=== PATIENT | female | born 1975 | race Caucasian/White ===

== ENCOUNTER 2024-03-12 14:02 | Outpatient (CLI) | payer BC, OTHER | END 2024-03-12 14:03 | disposition home or self-care (01) | LOC: CSHMRI 14:02 | PROVIDERS: ATTEND Psychiatry & Neurology Neurology | DX: R93.89 Abnormal findings on diagnostic imaging of other specified body structures (principal); R93.0 Abnormal findings on diagnostic imaging of skull and head, not elsewhere classified | CPT/HCPCS: 70544 ==

== ENCOUNTER 2024-04-19 13:07 | Emergency (ER) | payer BC, OTHER ==
[~2024-04-19 13:07] MED LIST: Iopamidol 300 61% 100 ML VIAL FS ONE
[2024-04-19] MEDS ORDERED: diphenhydrAMINE 50 MG/ML VIAL ONE (13:56)
[2024-04-19] MEDS ORDERED: Metoclopramide HCl 10 MG (2 mL) VIAL ONE (13:56)
[2024-04-19 14:34] LABS: #Basophils 0.03 10x3/uL (0.0-0.2); #Eosinophils 0.21 10x3/uL (0.0-0.5); #Monocytes 1.12 10x3/uL (0.0-1.1); #Neutrophils 7.27 10x3/uL (1.5-8.4); %Basophils 0.3 % (0.0-2.0); %Eosinophils 2.2 % (0.0-6.0); %Lymphocytes 9.8 % (18.0-47.0); %Monocytes 11.6 % (0.0-10.0); %Neutrophils 75.4 % (40.0-75.0); Hematocrit 38.8 % (34.9-44.5); Hemoglobin 13.2 g/dL (12.0-15.5); Mean Corpuscular Hemoglobin 30.3 pg (27.0-33.0); Mean Platelet Volume 10.6 fL (7.4-10.4); Platelet Count 207 10x3/uL (150-450); RBC Distribution Width 12.6 % (11.5-14.5); Red Blood Cell (RBC) Count 4.36 10x6/uL (3.90-5.03); White Blood Cell (WBC) Count 9.7 10x3/uL (3.5-10.5)
[2024-04-19] MEDS ORDERED: Magnesium 2 GM/50 ML BAG (IN WATER) ONE (15:04)
[2024-04-19] MEDS ORDERED: Acetaminophen 500 MG TAB ONE (15:04)
[2024-04-19 15:38] LABS: PTT 32.8 sec (22.0-33.0); Prothrombin Time 10.9 sec (9.5-12.1)
[2024-04-19 15:40] LABS: ALT (SGPT) 27 U/L (8-55); AST (SGOT) 25 U/L (5-34); Albumin 3.5 g/dL (3.5-5.0); Alkaline Phosphatase 102 U/L (40-110); Anion Gap 16 mmol/L (10-20); BUN (Urea Nitrogen) 7 mg/dL (7.0-18.7); Bilirubin, Total 0.5 mg/dL (0.2-1.2); Calc. Creatinine Clearance 0 mL/min (70-130); Calcium 9.8 mg/dL (7.8-10.44); Carbon Dioxide 26 mmol/L (22-29); Chloride 102 mmol/L (98-107); Estimated GFR 90; Globulin 3.6 g/dL (2.4-3.5); Glucose 132 mg/dL (70-105); Potassium 4.5 mmol/L (3.5-5.1); Protein, Total 7.1 g/dL (6.0-8.3); Sodium 139 mmol/L (136-145)
== END 2024-04-19 15:58 | disposition home or self-care (01) ==
LOC: CSHERS 13:07
DX: R51.9 Headache, unspecified (principal); H53.143 Visual discomfort, bilateral; I10 Essential (primary) hypertension
CPT/HCPCS: 36415; 70450; 70496; 80053; 85025; 85610; 85730; 93005; 96365; 96366; 96368; 96375; J1200; J2765; J3475; Q9967

== ENCOUNTER 2024-04-20 16:34 | Inpatient (IN) | payer BC, OTHER ==
[2024-04-20] MEDS ORDERED: Bupivacaine PF 0.5% 30 ML VIAL ONE (17:43)
[2024-04-20] MEDS ORDERED: Diazepam 10 MG/2 ML SYRINGE ONE (17:51)
[2024-04-20] MEDS ORDERED: diphenhydrAMINE 50 MG/ML VIAL ONE (17:52)
[2024-04-20] MEDS ORDERED: Metoclopramide HCl 10 MG (2 mL) VIAL ONE (17:52)
[2024-04-20 18:21] LABS: #Basophils 0.06 10x3/uL (0.0-0.2); #Eosinophils 0.27 10x3/uL (0.0-0.5); #Monocytes 1.03 10x3/uL (0.0-1.1); #Neutrophils 7.79 10x3/uL (1.5-8.4); %Basophils 0.6 % (0.0-2.0); %Eosinophils 2.6 % (0.0-6.0); %Lymphocytes 12.4 % (18.0-47.0); %Monocytes 9.7 % (0.0-10.0); %Neutrophils 73.6 % (40.0-75.0); Hematocrit 40.5 % (34.9-44.5); Hemoglobin 13.5 g/dL (12.0-15.5); Mean Corpuscular HGB CONC 33.3 g/dL (32.0-36.0); Mean Corpuscular Hemoglobin 29.7 pg (27.0-33.0); Mean Platelet Volume 9.7 fL (7.4-10.4); Platelet Count 276 10x3/uL (150-450); RBC Distribution Width 12.8 % (11.5-14.5); Red Blood Cell (RBC) Count 4.55 10x6/uL (3.90-5.03); White Blood Cell (WBC) Count 10.6 10x3/uL (3.5-10.5)
[2024-04-20 18:32] LABS: ALT (SGPT) 31 U/L (8-55); AST (SGOT) 28 U/L (5-34); Albumin 3.3 g/dL (3.5-5.0); Alkaline Phosphatase 92 U/L (40-110); Anion Gap 14 mmol/L (10-20); BUN (Urea Nitrogen) 9 mg/dL (7.0-18.7); Bilirubin, Total 0.3 mg/dL (0.2-1.2); Calc. Creatinine Clearance 0 mL/min (70-130); Calcium 9.7 mg/dL (7.8-10.44); Carbon Dioxide 25 mmol/L (22-29); Chloride 105 mmol/L (98-107); Estimated GFR 85; Globulin 3.4 g/dL (2.4-3.5); Glucose 126 mg/dL (70-105); Potassium 4.2 mmol/L (3.5-5.1); Protein, Total 6.7 g/dL (6.0-8.3); Sodium 140 mmol/L (136-145)
[2024-04-20] MEDS ORDERED: cefTRIAXone (ROCEPHIN) 2 GM VIAL ONE (18:46)
[2024-04-20] MEDS ORDERED: Acetaminophen 500 MG TAB ONE (20:45)
[2024-04-20] MEDS ORDERED: Acetaminophen 650 MG Suppository PR PRN (21:32)
[2024-04-20] MEDS: cefTRIAXone\\ROCEPHIN 2 GM in Sodium Chloride 0.9% 100 ML IVPB SCH (23:55)
[2024-04-20] MEDS: Dexamethasone 20 MG/5 ML VIAL SLOW IVP SCH (23:56)
[2024-04-21 00:07] VITALS: BMI 39.0
[2024-04-21 00:10] LABS: CSF, Glucose 73 mg/dl (40-70); CSF, Protein 61.2 mg/dL (15-40)
[2024-04-21 00:26] LABS: Color Of CSF Supernatant COLORLESS (Colorless); Tube # 1; Unspun CSF Color COLORLESS (Colorless)
[2024-04-21 01:27] LABS: Clarity Clear (Clear)
[2024-04-21 01:28] LABS: CSF RBC Count - Manual 28 /cu.mm (None Seen); CSF WBC/NonHematics Count-Man 34 /cu.mm (0-5)
[2024-04-21] MEDS: Acetaminophen 325 MG TAB PO PRN (01:42)
[2024-04-21] MEDS: traMADol HCl 50 MG TAB PO PRN ×2 (01:42→07:05)
[2024-04-21] MEDS: Vancomycin 2.25 GM in Sodium Chloride 0.9% 500 ML IVPB SCH (01:43)
[2024-04-21 01:59] LABS: CSF RBC Count - Manual 13 /cu.mm (None Seen); CSF Source CSF; CSF WBC/NonHematics Count-Man 33 /cu.mm (0-5); Clarity Clear (Clear); Tube # 1
[2024-04-21 02:10] LABS: Cell Count Non Hematic 23 %; Lymphocytes 73 %; Segmented Neutrophils 4 %
[2024-04-21 02:23] LABS: Cell Count Non Hematic 33 %; Lymphocytes 63 %; Segmented Neutrophils 4 %
[2024-04-21 02:57] LABS: CSF Source CSF; Tube # 3
[2024-04-21 04:03] LABS: Anion Gap 15 mmol/L (10-20); BUN (Urea Nitrogen) 7 mg/dL (7.0-18.7); Calc. Creatinine Clearance 123 mL/min (70-130); Calcium 9.5 mg/dL (7.8-10.44); Carbon Dioxide 22 mmol/L (22-29); Chloride 107 mmol/L (98-107); Estimated GFR 92; Glucose 177 mg/dL (70-105); Potassium 4.3 mmol/L (3.5-5.1); Sodium 140 mmol/L (136-145); Vancomycin, Random 44.9 ug/mL (See Comment)
[2024-04-21 04:07] LABS: #Basophils 0.07 10x3/uL (0.0-0.2); #Eosinophils 0.05 10x3/uL (0.0-0.5); #Monocytes 0.34 10x3/uL (0.0-1.1); #Neutrophils 9.43 10x3/uL (1.5-8.4); %Basophils 0.6 % (0.0-2.0); %Eosinophils 0.4 % (0.0-6.0); %Lymphocytes 10.6 % (18.0-47.0); %Neutrophils 83.5 % (40.0-75.0); Hematocrit 39.1 % (34.9-44.5); Hemoglobin 13.5 g/dL (12.0-15.5); Mean Corpuscular HGB CONC 34.5 g/dL (32.0-36.0); Mean Corpuscular Hemoglobin 30.3 pg (27.0-33.0); Mean Corpuscular Volume 87.9 fL (81.6-98.3); Mean Platelet Volume 9.8 fL (7.4-10.4); Platelet Count 314 10x3/uL (150-450); RBC Distribution Width 12.6 % (11.5-14.5); Red Blood Cell (RBC) Count 4.45 10x6/uL (3.90-5.03); White Blood Cell (WBC) Count 11.3 10x3/uL (3.5-10.5)
[2024-04-21] MEDS: FLU (Fluarix Triv) TS24-25(6MOS UP)/PF 45 MCG/0.5 ML Syringe IM ONE (08:45)
[2024-04-21] MEDS ORDERED: Vancomycin 1.5 GM in Sodium Chloride 0.9% 250 ML 300 ML IVPB SCH (09:00)
[2024-04-21] MEDS: Apixaban 5 MG TAB PO SCH (09:09)
[2024-04-21] MEDS: Venlafaxine XR 37.5 MG CAP PO SCH (09:09)
[2024-04-21 10:28] LABS: Vancomycin, Random 16.1 ug/mL (See Comment)
[2024-04-21] MEDS ORDERED: Vancomycin 1 GM in Sodium Chloride 0.9% 250 ML 250 ML IVPB SCH (13:00)
[2024-04-21] MEDS: Vancomycin (BATCH) 1.25 GM in Premix 1 BAG IVPB SCH (17:19)
[2024-04-21] MEDS: Rosuvastatin 10 MG TAB PO SCH (20:32)
[2024-04-22] MEDS ORDERED: SODIUM CHLORIDE 0.9% IVPB SCH (09:00)
[2024-04-22] MEDS ORDERED: ACYCLOVIR SODIUM IVPB SCH (09:00)
[2024-04-22] MEDS ORDERED: Sodium Chloride 0.9% 250 ML 250 ML ONE (21:28)
[2024-04-22] MEDS ORDERED: Vancomycin 1 GM VIAL ONE (21:28)
[2024-04-23] MEDS ORDERED: Vancomycin 1 GM VIAL ONE (04:48)
[2024-04-23] MEDS ORDERED: Sodium Chloride 0.9% 250 ML 250 ML ONE (04:48)
[2024-04-23] MEDS ORDERED: Pantoprazole DR 40 MG TAB ONE (08:40)
[2024-04-24 03:40] LABS: Hematocrit 37.8 % (34.9-44.5); Hemoglobin 13.4 g/dL (12.0-15.5); Mean Corpuscular HGB CONC 35.4 g/dL (32.0-36.0); Mean Corpuscular Hemoglobin 30.2 pg (27.0-33.0); Mean Corpuscular Volume 85.3 fL (81.6-98.3); Mean Platelet Volume 9.7 fL (7.4-10.4); Platelet Count 395 10x3/uL (150-450); RBC Distribution Width 12.3 % (11.5-14.5); Red Blood Cell (RBC) Count 4.43 10x6/uL (3.90-5.03); White Blood Cell (WBC) Count 25.7 10x3/uL (3.5-10.5)
[2024-04-24 03:41] LABS: MDiff Complete? YES
[2024-04-24 03:50] LABS: Anion Gap 15 mmol/L (10-20); BUN (Urea Nitrogen) 19 mg/dL (7.0-18.7); Calc. Creatinine Clearance 127 mL/min (70-130); Calcium 8.8 mg/dL (7.8-10.44); Carbon Dioxide 23 mmol/L (22-29); Chloride 105 mmol/L (98-107); Estimated GFR 95; Glucose 197 mg/dL (70-105); Potassium 4.5 mmol/L (3.5-5.1); Sodium 138 mmol/L (136-145)
[2024-04-24 04:25] LABS: Band 6 % (5-11); Lymphocytes 10 % (21-51); Metamyelocyte 1 % (0-0); Monocytes 1 % (0-10); Myelocyte 1 % (0-0); Neutrophil 79 % (42-75); Reactive Lymphocytes 2 % (0-10)
[2024-04-24 04:29] LABS: Platelet Adequacy Comment Appears Adequate; RBC Morph Comment Within Normal Limits; Toxic Granulation SLIGHT; Vacuoles SLIGHT
[2024-04-24 06:08] VITALS: TEMP 98.6
[2024-04-24] MEDS: Sodium Chloride 0.9% 250 ML 250 ML ONE ×3 (10:31→10:39)
[2024-04-24] MEDS: Vancomycin 1 GM VIAL ONE ×3 (10:31→10:39)
[2024-04-24] MEDS: Pantoprazole DR 40 MG TAB ONE (10:39)
[2024-04-24 12:12] VITALS: BP 168/75
[2024-04-24] MEDS ORDERED: Vancomycin 1 GM in Sodium Chloride 0.9% 250 ML 250 ML IVPB SCH (14:00)
[2024-04-24 19:33] LABS: #Basophils 0.11 10x3/uL (0.0-0.2); #Monocytes 0.86 10x3/uL (0.0-1.1); #Neutrophils 20.26 10x3/uL (1.5-8.4); %Basophils 0.4 % (0.0-2.0); %Lymphocytes 9.5 % (18.0-47.0); %Monocytes 3.5 % (0.0-10.0); %Neutrophils 82.8 % (40.0-75.0); Hematocrit 39.7 % (34.9-44.5); Mean Corpuscular HGB CONC 35.3 g/dL (32.0-36.0); Mean Corpuscular Hemoglobin 30.6 pg (27.0-33.0); Mean Corpuscular Volume 86.7 fL (81.6-98.3); Mean Platelet Volume 9.6 fL (7.4-10.4); Platelet Count 367 10x3/uL (150-450); RBC Distribution Width 12.2 % (11.5-14.5); Red Blood Cell (RBC) Count 4.58 10x6/uL (3.90-5.03); White Blood Cell (WBC) Count 24.5 10x3/uL (3.5-10.5)
[2024-04-24 20:54] LABS: Potassium 4.3 mmol/L (3.5-5.1); Sodium 139 mmol/L (136-145)
[2024-04-24 20:55] LABS: Anion Gap 17 mmol/L (10-20); BUN (Urea Nitrogen) 14 mg/dL (7.0-18.7); Calc. Creatinine Clearance 135 mL/min (70-130); Calcium 9.6 mg/dL (7.6-10.4); Carbon Dioxide 21 mmol/L (22-29); Chloride 105 mmol/L (98-107); Estimated GFR 102; Glucose 203 mg/dL (70-105)
== END 2024-04-24 12:30 | disposition home or self-care (01) | DRG 99 ==
LOC: SUATTDRO 16:34 → CSHERS 16:34 → CSHTELE 20:54 → OBSVTOIN 04-21 13:09
PROVIDERS: ADMIT Family Medicine; ATTEND Internal Medicine
PROC: 009U3ZX Drainage of Spinal Canal, Percutaneous Approach, Diagnostic (ICD-10-PCS; principal; 2024-04-20)
PROC: B01BZZZ Fluoroscopy of Spinal Cord (ICD-10-PCS; 2024-04-20)
DX: G03.0 Nonpyogenic meningitis (principal); A87.9 Viral meningitis, unspecified; I10 Essential (primary) hypertension; Z79.01 Long term (current) use of anticoagulants; Z79.899 Other long term (current) drug therapy
CPT/HCPCS: 36415; 62270; 70551; 80048; 80053; 80202; 82945; 84157; 85025; 85060; 87040; 87070; 87205; 89051; 94762; 96361; 96365; 96375; 96376; G0378; J0665; J0696; J1100; J1200; J2765; J3360; J3370; J7030